=== PATIENT | male | born 1995 | race Caucasian/White ===

== ENCOUNTER 2016-08-26 19:43 | Emergency (ER) | payer OTHER | END 2016-08-26 21:51 | disposition home or self-care (01) | LOC: FER 19:43 | DX: S83.92XA Sprain of unspecified site of left knee, initial encounter (principal); W51.XXXA Accidental striking against or bumped into by another person, initial encounter; Y92.009 Unspecified place in unspecified non-institutional (private) residence as the place of occurrence of the external cause | CPT/HCPCS: 73564; J1885 ==